=== PATIENT | female | born 1960 | race African-American/Black ===

== ENCOUNTER 2021-08-24 19:09 | Emergency (ER) | payer MEDICAID, OTHER ==
[~2021-08-24] VITALS: Ht 162.6 cm; Wt 68.0 kg
[2021-08-24 20:34] LABS: BASOPHILS % 0.3 % (0.0-2.0); HEMATOCRIT. 36.1 % (36.0-48.0); HEMOGLOBIN. 12.3 g/dL (12.0-16.0); LYMPHOCYTES % 9.1 % (20.0-50.0); MEAN CORPUSCULAR HEMOGLOBIN 27.4 pg (28.0-32.0); MEAN CORPUSCULAR VOLUME 80.2 fL (81.0-99.0); MEAN PLATELET VOLUME 7.7 fl (7.4-10.4); NEUTROPHILS % 88.6 % (40.0-76.0); PLATELET 298 x1000/uL (130-400); RED CELL DISTRIBUTION WIDTH 14.4 % (11.6-14.6)
[2021-08-24 20:42] LABS: CHLORIDE 105 mEq/L (98-107)
[2021-08-24 20:45] LABS: PROTHROMBIN TIME 10.6 sec (9.6-11.0)
[2021-08-24 23:34] LABS: CLARITY URINE CLEAR (CLEAR); COLOR URINE YELLOW (YELLOW); KETONES URINE TRACE (NEGATIVE); LEUKOCYTE ESTERASE URINE NEGATIVE (NEGATIVE); NITRITE URINE NEGATIVE (NEGATIVE); OCCULT BLOOD URINE 3+ (NEGATIVE); PH URINE 6.5 (4.5-8.0); PROTEIN URINE 1+ (NEGATIVE); SPECIFIC GRAVITY URINE 1.016 (1.005-1.030); UROBILINOGEN URINE 0.2 E.U./dL (0.2-1.0)
[2021-08-25] MEDS ORDERED: MORPHINE SULFATE 4 MG/ML CPJ (NOT FOR IM USE) IV ONE
[2021-08-25] MEDS ORDERED: ONDANSETRON HCL 4MG/2ML INJ IV ONE
[2021-08-25] MEDS ORDERED: MORPHINE SULFATE 2 MG/ML CPJ (NOT FOR IM USE) IV ONE (00:15)
[2021-08-25] MEDS ORDERED: KETOROLAC 30MG/ML VIAL IV ONE (01:45)
[2021-08-25] MEDS ORDERED: TAMSULOSIN HCL 0.4MG SR CAPSULE PO ONE (01:45)
[2021-08-25 02:19] VITALS: BP 208/88
[2021-08-25] MEDS ORDERED: TAMS-11 PO (02:20)
[2021-08-25] MEDS ORDERED: ACET-2708 MT (02:22)
[2021-08-25] MEDS ORDERED: IBUP-2029 MT (02:22)
== END 2021-08-25 03:48 | disposition home or self-care (01) ==
LOC: ER 19:09
DX: N20.0 Calculus of kidney (principal); R11.10 Vomiting, unspecified; Z85.6 Personal history of leukemia; I10 Essential (primary) hypertension; Z90.710 Acquired absence of both cervix and uterus; Z88.5 Allergy status to narcotic agent
CPT/HCPCS: 36415; 74176; 76830; 76856; 80053; 81003; 83690; 85025; 85610; 93005; 96374; 96375; 99285; J1885; J2270; J2405